=== PATIENT | female | born 1980 | race Two or more races ===

== ENCOUNTER 2017-10-04 09:20 | Emergency (ER) | payer MEDICAID ==
[~2017-10-04] VITALS: Ht 162.6 cm; Wt 120.2 kg
[2017-10-04 10:16] LABS: Basophils # (auto) 0 uL; Basophils % (auto) 0.4 % (0.0-2.0); Eosinophils # (auto) 0.1 uL; Eosinophils % (auto) 1.2 % (0.0-7.0); Hematocrit 48.3 % (36.0-46.0); Hemoglobin 16.4 g/dL (12.2-16.2); Lymphocytes # (auto) 3.2 uL; Lymphocytes % (auto) 31.7 % (10.0-50.0); Mean Corpuscular Hemoglobin 30.9 pg (28.0-32.0); Monocytes # (auto) 0.7 uL; Neutrophils % (auto) 59.7 % (37.0-80.0); Nucleated Red Blood Cells % 0.1 %; Platelet Count (auto) 240 10^3/uL (140-450); Red Blood Cells 5.31 10^6/uL (4.0-5.20); Red Cell Distribution Width 12.6 % (11.8-14.3); White Blood Cell 10.1 10^3/uL (4.4-10.8)
[2017-10-04 10:28] LABS: Albumin 3.2 g/dL (3.4-5.0); BUN/Creatinine Ratio 10.5; Bilirubin, Total 0.3 mg/dL (0.2-1.0); Potassium 3.5 mmol/L (3.5-5.1); Total Protein 7.3 g/dL (6.4-8.2)
[2017-10-04 10:40] VITALS: BP 145/70
[2017-10-04] MEDS ORDERED: metFORMIN HYDROCHLORIDE 500 MG TAB PO ONE (11:00)
== END 2017-10-04 11:30 | disposition home or self-care (01) ==
LOC: ER 09:20
DX: B35.3 Tinea pedis (principal); L08.89 Other specified local infections of the skin and subcutaneous tissue; E11.9 Type 2 diabetes mellitus without complications; E66.9 Obesity, unspecified; I10 Essential (primary) hypertension
CPT/HCPCS: 36415; 73620; 80053; 85025

== ENCOUNTER 2018-06-06 17:29 | Emergency (ER) | payer MEDICAID ==
[~2018-06-06] VITALS: Ht 162.6 cm; Wt 108.0 kg
[2018-06-06 18:09] VITALS: BP 142/97
[2018-06-06] MEDS ORDERED: IBUPROFEN 800 MG TAB PO ONE (18:15)
== END 2018-06-06 18:23 | disposition home or self-care (01) ==
LOC: ER 17:33
DX: M77.9 Enthesopathy, unspecified (principal); E11.9 Type 2 diabetes mellitus without complications; I10 Essential (primary) hypertension
CPT/HCPCS: 29125

== ENCOUNTER 2019-04-12 17:44 | Emergency (ER) | payer SELFPAY ==
[~2019-04-12] VITALS: Ht 162.6 cm; Wt 108.9 kg
[2019-04-12 18:03] VITALS: BP 158/98
== END 2019-04-12 22:46 | disposition left against medical advice (07) ==
LOC: ER 17:44
DX: K08.89 Other specified disorders of teeth and supporting structures (principal); Z53.21 Procedure and treatment not carried out due to patient leaving prior to being seen by health care provider

== ENCOUNTER 2019-07-05 19:22 | Emergency (ER) | payer MEDICAID ==
[~2019-07-05] VITALS: Ht 162.6 cm; Wt 111.1 kg
[2019-07-05 20:28] LABS: Urine Bacteria NONE SEEN /hpf (None Seen); Urine Blood Negative /uL (Negative); Urine Mucus FEW (None Seen); Urine Specific Gravity 1.032 (1.001-1.035); Urine WBC 2 /hpf (0 - 5)
[2019-07-05 22:12] VITALS: BP 147/91
[2019-07-05] MEDS ORDERED: KETOROLAC TROMETH 60MG/2ML VIAL IM ONE (22:15)
[2019-07-05] MEDS ORDERED: methylPREDNISolone SOD SUCC 125 MG/2 ML VL IM ONE (22:15)
== END 2019-07-05 22:26 | disposition home or self-care (01) ==
LOC: ER 19:24
DX: S33.5XXA Sprain of ligaments of lumbar spine, initial encounter (principal); M47.896 Other spondylosis, lumbar region; M62.830 Muscle spasm of back; W18.39XA Other fall on same level, initial encounter; Y93.79 Activity, other specified sports and athletics; Y92.89 Other specified places as the place of occurrence of the external cause; Y99.8 Other external cause status
CPT/HCPCS: 72100; 81001; 81025; 82962

== ENCOUNTER → 2021-02-24 | Emergency (ER) | payer MEDICAID ==
[~2021-02-24] VITALS: Ht 162.6 cm; Wt 99.8 kg
[2021-02-24 13:48] VITALS: BP 157/94
== END | disposition left against medical advice (07) ==
LOC: ER 13:48
DX: M54.5 Low back pain (principal); Z53.21 Procedure and treatment not carried out due to patient leaving prior to being seen by health care provider